=== PATIENT | female | born 1955 | race Caucasian/White ===

== ENCOUNTER 2024-12-05 08:06 | Day surgery (SDC) | payer BC, MEDICARE ==
[~2024-12-05 08:06] MED LIST: Midazolam 1 MG/ML 2 ML SDV ONE; Propofol 200 MG/20 ML SDV ONE; fentaNYL 100 MCG/2 ML SDV ONE
[2024-12-05] MEDS: Lactated Ringers 1,000 ML IV SCH (08:42)
[2024-12-05] MEDS ORDERED: Ondansetron 4 MG/2 ML SDV ONE (08:47)
[2024-12-05] MEDS ORDERED: Dexamethasone 4 MG/ML SDV ONE (08:47)
== END 2024-12-05 11:20 | disposition home or self-care (01) ==
LOC: JP.SDS 08:06
PROVIDERS: ATTEND Surgery
DX: R10.9 Unspecified abdominal pain (principal); I10 Essential (primary) hypertension
CPT/HCPCS: 00811; 45380; J1100; J2250; J2405; J2704; J3010; J7120